=== PATIENT | female | born 1945 | race Caucasian/White ===

== ENCOUNTER 2016-08-31 00:19 | Emergency (ER) | payer OTHER ==
[~2016-08-31] VITALS: Ht 157.5 cm; Wt 68.0 kg
--- NOTE | ~2016-08-31 | EKG ---
[address] [place] [address] ELECTROCARDIOGRAM REPORT Name: SUREKHA GRAYSON [id number] Admission: 08/31/16 Attend Phys: Discharge: 08/31/16 Date of : 49 Report #: [id number] THIS REPORT FOR: //name// [facility] ED Test Date: 2016-08-31 Test Time: 00:22:54 Pat Name: SUREKHA GRAYSON Department: Room: Gender: F Tailercpa: : 1945 Requested By: Brett Grant Order Number: [id number] MD: Migue Orlando Measurements Intervals [place] Rate: 101 P: 73 [place]: 133 QRS: 53 QRSD: 86 T: 70 QT: 327 QTc: 424 Interpretive Statements Sinus tachycardia Otherwise no significant abnormality No previous ECG available for comparison Electronically Signed On 08-31-2016 9:37:38 CDT by Migue Orlando [email or web address] <ELECTRONICALLY SIGNED> By: Migue Orlando MD, [facility] 08/31/16 0937 0022 0022 Migue Orlando MD, FAC /EPI
[~2016-08-31 00:19] MED LIST: ACTONEL150 MG PO; ALEVE220 MG PO; ANORO ELLIPTA1 EACH; BENTYL 10 MG CA10 M1 PO; BROVANA15 MCG/2 M INH; CEFDINIR300 MG PO; CIPROFLOXACIN500 M1 PO; FLAGYL500 MG PO; FOSAMAX 70 MG T70 MG PO; HYDROCODONE-AP1 EAC6 PO; INCRUSE ELLI62.5 MCG IH; METHOCARBAMOL500 M1 PO; MINIPRIN81 MG; MUCINEX600 MG PO; NORCO 5-325 TA1 EACH PO; NORVASC 5 MG TAB5 MG PO; OSTEOPOROSIS MED; PREDNISONE 10 M10 M1 PO; PREDNISONE 10 M10 MG PO; PRILOSEC 20 MG20 MG PO; PRINIVIL10 MG PO; PROAIR HFA8.5 GM INH; SPIRIVA INH; SYMBICORT160 MCG/4. INH; TUMS PO; ZANTAC 150MG T150 M1
[2016-08-31 01:09] LABS: HEMATOCRIT 37.9 % (37.0-47.0); HEMOGLOBIN 12.7 gm/dL (12.0-15.0); MCH 28.7 pg (26.0-34.0); MCHC 33.7 g/dL (28.0-37.0); MCV 85.2 fL (80.0-100.0); RBC 4.45 mil/uL (4.20-5.00); WBC 13.6 thou/uL (4.0-11.0)
[2016-08-31 01:17] LABS: CALCIUM 9.2 mg/dL (8.5-10.1); CREATININE 0.8 mg/dL (0.6-1.0); POTASSIUM 3.5 mmol/L (3.5-5.1)
[2016-08-31] MEDS ORDERED: NORCO 5-325 TA1 EACH PO (01:48)
[2016-08-31] MEDS ORDERED: PREDNISONE 20 M20 MG PO (01:48)
[2016-08-31] MEDS ORDERED: DOXYCYCLINE 10100 MG PO (01:48)
== END 2016-08-31 02:42 | disposition home or self-care (01) ==
LOC: ER 00:19
PROVIDERS: Emergency Medicine
DX: J18.1 Lobar pneumonia, unspecified organism (principal); M81.0 Age-related osteoporosis without current pathological fracture; I10 Essential (primary) hypertension; J44.9 Chronic obstructive pulmonary disease, unspecified; K21.9 Gastro-esophageal reflux disease without esophagitis; E78.00 Pure hypercholesterolemia, unspecified; Z90.710 Acquired absence of both cervix and uterus; Z80.49 Family history of malignant neoplasm of other genital organs; Z88.2 Allergy status to sulfonamides; Z88.0 Allergy status to penicillin; Z88.1 Allergy status to other antibiotic agents; Z88.6 Allergy status to analgesic agent

== ENCOUNTER → 2016-11-15 | Outpatient (CLI) | payer OTHER ==
[~2016-11-15] MED LIST changes: +DOXYCYCLINE 10100 MG PO; +PREDNISONE 20 M20 MG PO
[2016-11-15 12:49] LABS: ABG SAMPLE TYPE ARTERIAL; BE(vivo) -0.5 mmol/L (-2 to +3); HCO3 23.7 mmol/L (22.0-26.0); LACTATE 1.03 mmol/L (0.5-2.0); O2(CT) 18.7 mL/dL (15.0-23.0); O2Hb 95.3 % (92.0-98.0); PCO2 37.4 mmHg (35.0-45.0); PO2 81.1 mmHg (80.0-100.0); pH 7.419 (7.360-7.450); sO2 96.2 % (92.0-98.0); tCO2 24.8 mmol/L (24.0-30.0)
[2016-11-15 12:50] LABS: ABG COMMENT 3 LITERS PULSE DOSE; STICK SITE L.BRACHIAL
[2016-11-15 13:17] LABS: BASOPHILS 1.4 % (0.0-2.0); EOSINOPHILS 3.4 % (0.0-3.0); HEMATOCRIT 41.2 % (37.0-47.0); HEMOGLOBIN 13.6 gm/dL (12.0-15.0); LYMPHOCYTES 18.1 % (24.0-44.0); MANUAL DIFF NO; MCH 28.7 pg (26.0-34.0); MCHC 33.1 g/dL (28.0-37.0); MCV 86.7 fL (80.0-100.0); MONOCYTES 8.8 % (1.0-8.0); PLATELET COUNT 349 thou/uL (150-400); POLYS 68.3 % (36.0-66.0); RBC 4.75 mil/uL (4.20-5.00); RDW 14.8 % (10.5-14.5); WBC 7.4 thou/uL (4.0-11.0)
[2016-11-15 13:28] LABS: CALCIUM 9.2 mg/dL (8.5-10.1); CREATININE 0.7 mg/dL (0.6-1.0); POTASSIUM 3.9 mmol/L (3.5-5.1)
[2016-11-15 13:32] LABS: ALBUMIN 3.7 g/dL (3.4-5.0); TOTAL BILIRUBIN 0.2 mg/dL (<0.1-1.0); TOTAL PROTEIN 7.9 g/dL (6.4-8.2)
[2016-11-15 13:33] LABS: URINE BILIRUBIN NEGATIVE (Negative); URINE BLOOD NEGATIVE (Negative); URINE COLOR YELLOW; URINE GLUCOSE-RANDOM* NEGATIVE (Negative); URINE KETONES NEGATIVE (Negative); URINE LEUKOCYTES-REFLEX NEGATIVE (Negative); URINE PROTEIN (DIPSTICK) NEGATIVE (Negative); URINE UROBILINOGEN 0.2 E.U./dl (0.2-1.0)
== END ==
LOC: PULREHAB 11:49
PROVIDERS: Family Medicine
DX: J44.9 Chronic obstructive pulmonary disease, unspecified (principal)

== ENCOUNTER → 2017-01-09 | Outpatient (CLI) | payer OTHER | LOC: NUC 03:16 → RAD 03:16 | DX: Z12.31 Encounter for screening mammogram for malignant neoplasm of breast (principal); M81.0 Age-related osteoporosis without current pathological fracture; I10 Essential (primary) hypertension; E55.9 Vitamin D deficiency, unspecified; E28.39 Other primary ovarian failure ==

== ENCOUNTER → 2017-08-05 | Outpatient (CLI) | payer OTHER ==
[~2017-08-05] VITALS: Ht 157.5 cm; Wt 65.3 kg
[~2017-08-05] MED LIST changes: +BUPROPION HCL200 MG PO; +OXYGEN MISCELL; +VENTOLIN HFA 1818 GM INH
--- NOTE | ~2017-08-05 | HPC ---
[facility] [address] [address] PAIN MANAGEMENT CONSULTATION Name: SUREKHA GRAYSON [facility]: [facility] [id number] Admission: 08/05/17 Attend Phys: Angel Collins DO Discharge: Date of : 49 Report #: [id number] THIS REPORT FOR: //name// CC: Angel Dacosta The patient is a 71-year-old female seen just shy of 3 years ago, 08/20/2014, by Dr. Angel Collins. She was given epidural and lumbar epidural injections for lumbar radicular pain. She has prior been given cervical injections for cervical symptoms, perhaps 6 years ago. She presents to pain clinic today with a somewhat new complaint. Having pain in the left upper neck, radiating into the shoulder. She denies antecedent trauma and overuse. She notes the pain seems to be exacerbated with cervical range of motion. She rates her pain impact score 3070. Notes pain is a "9" on a 0-10 visual analog scale. Stinging sensation. Gets some relief with medication, heat and lying recumbent. REVIEW OF SYSTEMS: A 71-year-old female, BMI is 26.3 kilograms per meter squared. COPD for which she uses supplemental oxygen. Uses albuterol. Bupropion for some chronic anxiety and depression. Ellipta inhaler for ongoing COPD, Fosamax for history of osteoporosis. Spiriva, Symbicort and albuterol, ProAir, again all for her COPD. Has hypertension for which she takes Norvasc and lisinopril. Omeprazole for gastroesophageal reflux. Remaining review of systems is noncontributory. PHYSICAL EXAMINATION: Reveals a 71-year-old female, BMI is 26.3 kilograms per meter squared. Vital signs are stable as noted in the EMR. Cervical range of motion is limited in all planes. Very tender to palpation over the mid cervical facets. Upper extremity strength is generally preserved, though left abduction exacerbates pain, Lhermitte's is negative. Hand grasp is symmetric. Deep tendon reflexes are preserved. Tinel's is negative bilaterally. Heart is regular and rhythmic without murmur. Lungs do show some coarse rhonchi. Gait is tandem. There are no recent diagnostic studies available for evaluation at this time. ASSESSMENT: Symptomatic cervical spondylosis by clinical exam and history. No radicular or myelopathic symptoms noted at this time. RECOMMENDATION: 1. Continue nonsteroidal anti-inflammatory medication (Aleve). 2. Cervical facet joint injection under fluoroscopy today, left C2-3, 3-4, 4-5. If this affords transient relief, we will consider medial branch dorsal rami at C2, 3 and 4 and consideration of radiofrequency neurolysis of same. [address] [address] PAIN MANAGEMENT CONSULTATION Name: SUREKHA GRAYSON Room #: REG KARIS[facility] Ruiz#: [id number] Admission: 08/05/17 Attend Phys: Angel Collins DO Discharge: Date of : 49 Report #: [id number] ASSESSMENT: Symptomatic cervical spondylosis without myelopathy or radiculopathy. PROCEDURE: Left C2-3, 3-4 and 4-5 facet joint injection under fluoroscopy. PROCEDURE NOTE: After written and informed consent was obtained, the patient was taken to fluoroscopy, placed in prone position. After sterile prep and drape, skin was raised. Three 22-gauge stylet needles were placed to contact posterior aspect of the left C2-3, 3-4, and 4-5 facet joints. Needle was in the middle of the lateral mass. Lateral projections showed good needle placement at the posterior aspect of the joint. A 2 mg of Decadron plus 1 mL of 0.5% preservative-free bupivacaine injected at all 3 sites. All needles were removed. The area was cleansed. Band-Aid applied. The patient monitored for an appropriate period of time, discharged in good stable condition. Please note she had dramatic improvement of baseline pain, in fact noted pain was absent on discharge. We will plan on moving forward with medial branch dorsal rami diagnostic blocks at next visit. <ELECTRONICALLY SIGNED> By: Bola Collins DO 08/08/17 0938 [id number] Bola Collins DO /nt
[2017-08-05 10:36] VITALS: BP 137/89
== END | disposition home or self-care (01) ==
LOC: PAIN 04-30 09:21
DX: M47.812 Spondylosis without myelopathy or radiculopathy, cervical region (principal); J44.9 Chronic obstructive pulmonary disease, unspecified; Z79.899 Other long term (current) drug therapy; F41.9 Anxiety disorder, unspecified; F32.9 Major depressive disorder, single episode, unspecified; M81.0 Age-related osteoporosis without current pathological fracture; I10 Essential (primary) hypertension; K21.9 Gastro-esophageal reflux disease without esophagitis

== ENCOUNTER → 2018-03-04 | Outpatient (CLI) | payer OTHER | LOC: RAD 03:02 | DX: Z12.31 Encounter for screening mammogram for malignant neoplasm of breast (principal); J44.9 Chronic obstructive pulmonary disease, unspecified; E78.5 Hyperlipidemia, unspecified; I10 Essential (primary) hypertension; K21.9 Gastro-esophageal reflux disease without esophagitis; M81.0 Age-related osteoporosis without current pathological fracture ==

== ENCOUNTER → 2018-04-23 | Outpatient (CLI) | payer OTHER ==
[~2018-04-23] VITALS: Ht 157.5 cm; Wt 66.1 kg
[~2018-04-23] MED LIST changes: +CELEBREX 200 M200 M1 PO; +CYCLOBENZAPRINE10 MG PO; +TRAMADOL 50 MG50 MG PO
[2018-04-23 10:44] VITALS: BP 133/86
== END ==
LOC: PAIN 05:48
DX: M54.2 Cervicalgia (principal); M25.512 Pain in left shoulder; Z79.899 Other long term (current) drug therapy

== ENCOUNTER → 2018-05-13 | Outpatient (CLI) | payer OTHER ==
[2018-05-13 10:32] LABS: ABSOLUTE NEUTROPHILS 11.5 thou/uL (1.4-8.2); BASOPHILS 0.7 % (0.0-2.0); EOSINOPHILS 0.2 % (0.0-3.0); HEMATOCRIT 37.4 % (37.0-47.0); HEMOGLOBIN 12.5 gm/dL (12.0-15.0); LYMPHOCYTES 8.3 % (24.0-44.0); MCH 28.6 pg (26.0-34.0); MCHC 33.5 g/dL (28.0-37.0); MCV 85.4 fL (80.0-100.0); MONOCYTES 7.5 % (1.0-8.0); PLATELET COUNT 287 thou/uL (150-400); POLYS 83.3 % (36.0-66.0); RBC 4.38 mil/uL (4.20-5.00); RDW 13.9 % (10.5-14.5); WBC 13.8 thou/uL (4.0-11.0)
[2018-05-13 10:51] LABS: ALBUMIN 3.5 g/dL (3.4-5.0); POTASSIUM 3.7 mmol/L (3.5-5.1); TOTAL BILIRUBIN 0.6 mg/dL (<0.1-1.0); TOTAL PROTEIN 6.9 g/dL (6.4-8.2)
== END ==
LOC: LABMALL 09:47 → CAT 09:47
PROVIDERS: Family Medicine
DX: K76.9 Liver disease, unspecified (principal); K63.89 Other specified diseases of intestine

== ENCOUNTER → 2019-03-17 | Outpatient (CLI) | payer OTHER | LOC: RAD 02:00 | DX: Z12.31 Encounter for screening mammogram for malignant neoplasm of breast (principal) ==

== ENCOUNTER → 2019-04-28 | Outpatient (CLI) | payer OTHER | LOC: MRI 08:43 | DX: R90.82 White matter disease, unspecified (principal); Z88.0 Allergy status to penicillin; Z88.2 Allergy status to sulfonamides ==

== ENCOUNTER → 2019-05-01 | Outpatient (CLI) | payer OTHER | LOC: RAD 08:46 → ULTRA 13:10 | DX: I65.23 Occlusion and stenosis of bilateral carotid arteries (principal); R13.10 Dysphagia, unspecified; G45.9 Transient cerebral ischemic attack, unspecified; Z88.8 Allergy status to other drugs, medicaments and biological substances; Z88.2 Allergy status to sulfonamides ==

== ENCOUNTER → 2021-03-21 | Outpatient (CLI) | payer OTHER ==
[2021-03-21 15:50] LABS: CREATININE 1.1 mg/dL (0.6-1.0)
== END ==
LOC: RAD 14:42
PROVIDERS: ATTEND Family Medicine
DX: K57.30 Diverticulosis of large intestine without perforation or abscess without bleeding (principal); R19.7 Diarrhea, unspecified; K62.5 Hemorrhage of anus and rectum